=== PATIENT | male | born 1965 | race Caucasian/White ===

== ENCOUNTER 2016-06-11 12:29 | Emergency (ER) | payer OTHER ==
[~2016-06-11] VITALS: Ht 175.3 cm; Wt 88.5 kg
[2016-06-11 12:35] VITALS: BP 139/72
--- NOTE | 2016-06-11 12:46 | PHYS DOC ---
Past History Past Medical History: Bipolar Smoking: Non-smoker Alcohol Use: Occasionally Drug Use: None Adult General Chief Complaint Chief Complaint: CHEST PAIN HPI HPI 50-year-old male patient complaining of nonexertional sudden onset of substernal aching chest pain without radiation that started 1 hour ago. Patient complaining of nausea without shortness of breath, dizziness, palpitation, cough and congestion. Patient rated his pain 8/10 and improved to 2/10 after having a splinting given by EMS. Patient denies history of chest pain or having cardiac risk factor. Review of Systems Review of Systems Constitutional: Denies fever or chills [] Eyes: Denies change in visual acuity, redness, or eye pain [] HENT: Denies nasal congestion or sore throat [] Respiratory: Denies cough or shortness of breath [] Cardiovascular: No additional information not addressed in HPI [] GI: Denies abdominal pain, vomiting, bloody stools or diarrhea , reports nausea [] : Denies dysuria or hematuria [] Musculoskeletal: Denies back pain or joint pain [] Integument: Denies rash or skin lesions [] Neurologic: Denies headache, focal weakness or sensory changes [] Endocrine: Denies polyuria or polydipsia [] Physical Exam Physical Exam Constitutional: Well developed, well nourished, no acute distress, non-toxic appearance. [] HENT: Normocephalic, atraumatic, bilateral external ears normal, oropharynx moist, no oral exudates, nose normal. [] Eyes: PERRLA, EOMI, conjunctiva normal, no discharge. [] Neck: Normal range of motion, no tenderness, supple, no stridor. [] Cardiovascular:Heart rate regular rhythm, no murmur [] Lungs & Thorax: Bilateral breath sounds clear to auscultation [] Abdomen: Bowel sounds normal, soft, no tenderness, no masses, no pulsatile masses. [] Skin: Warm, dry, no erythema, no rash. [] Back: No tenderness, no CVA tenderness. [] Extremities: No tenderness, no cyanosis, no clubbing, ROM intact, no edema. [] Neurologic: Alert and oriented X 3, normal motor function, normal sensory function, no focal deficits noted. [] Psychologic: Affect normal, judgement normal, mood normal. [] EKG EKG [] EKG at 1234 showed normal sinus rhythm rate of 67, poor R wave progress in anterior leads, no acute ST elevation Radiology/Procedures Radiology/Procedures [Chest x-ray was unremarkable] Impressions: Chest pain Course & Med Decision Making Course & Med Decision Making Pertinent Labs and Imaging studies reviewed. (See chart for details) Patient presented for chest pain and had unremarkable physical examination and labs and ekg. Chest pain looked like noncardiac chest pain. patient instructed to follow with his primary care physician for more cardiac evaluation. Patient rated his pain 1/10 and did not want to have pain medication while in the ER. Dragon Disclaimer Dragon Disclaimer This chart was dictated in whole or in part using Voice Recognition software in a busy, high-work load, and often noisy Emergency Department environment. It may contain unintended and wholly unrecognized errors or omissions. Departure Departure: Impression: Primary Impression: Chest pain Additional Impression: History of bipolar disorder Disposition: HOME, SELF-CARE (At `358) Condition: STABLE Referrals: MARYANNE WISEMAN APRN (PCP) Patient Instructions: Chest Pain (Nonspecific) Additional Instructions: Follow up with your doctor in 2-3 days for more heart evaluations Problem Qualifiers ERIK TAYLOR MD Jun 11, 2016 12:46
[2016-06-11 12:53] LABS: BASO % 1 % (0-3); EOS # 0.1 x10^3/uL (0.0-0.7); EOS % 2 % (0-3); HEMATOCRIT 43.4 % (39.0-53.0); LYMPH % 40 % (24-48); MEAN CORPUSCULAR HEMOGLOBIN 32 pg (25-35); MEAN CORPUSCULAR HGB CONC 35 g/dL (31-37); MEAN CORPUSCULAR VOLUME 94 fL (79-100); MONO # 0.7 x10^3/uL (0.0-1.1); MONO % 13 % (0-9); NEUT # 2.2 x10^3uL (1.8-7.7); NEUT % 44 % (31-73); PLATELET COUNT 138 x10^3/uL (140-400); RED BLOOD COUNT 4.63 x10^6/uL (4.30-5.70); WHITE BLOOD COUNT 4.9 x10^3/uL (4.0-11.0)
--- NOTE | 2016-06-11 12:58 | RAD ---
Indication chest pain. A single view of the chest was obtained. No prior imaging of the chest is available. The heart, pulmonary vessels and mediastinum appear normal. The lungs are clear. There is no pleural fluid or pneumothorax. Bony structures appear grossly intact. IMPRESSION: No acute or focal process is seen in the chest
[2016-06-11 13:14] LABS: ALBUMIN 3.6 g/dL (3.4-5.0); ALBUMIN/GLOBULIN RATIO 0.9 (1.0-1.7); CREATININE 1.2 mg/dL (0.7-1.3); GFR 64.1; MAGNESIUM 1.7 mg/dL (1.8-2.4); POTASSIUM 3.7 mmol/L (3.5-5.1); TOTAL BILIRUBIN 0.4 mg/dL (0.2-1.0); TOTAL PROTEIN 7.6 g/dL (6.4-8.2)
--- NOTE | 2016-06-11 13:58 | EKG ---
[address] [address] Test Date: 2016-06-11 Test Time: 12:34:54 Pat Name: MAINOR LA Department: Room: Gender: M [employer]: : 1965 Requested By: ERIK TAYLOR Order Number: [id number] Reading MD: Measurements Intervals [place] Rate: 67 P: 34 ID: [id number] QRS: 39 QRSD: 100 T: 13 QT: 378 QTc: 402 Interpretive Statements SINUS RHYTHM QRS(T) CONTOUR ABNORMALITY CONSIDER ANTEROLATERAL MYOCARDIAL DAMAGE POSSIBLY ABNORMAL ECG RI6.01 Unconfirmed report No previous ECG available for comparison
== END 2016-06-11 14:12 | disposition home or self-care (01) ==
LOC: ER 12:29
DX: R07.89 Other chest pain (principal); R07.2 Precordial pain; F31.9 Bipolar disorder, unspecified
CPT/HCPCS: 36415; 71010; 80053; 82553; 83690; 83735; 84484; 85027; 93005; 99285-25